=== PATIENT | male | born 1975 | race Two or more races ===

== ENCOUNTER 2018-11-07 12:47 | Emergency (ER) | payer MEDICAID ==
[~2018-11-07] VITALS: Ht 172.7 cm; Wt 70.0 kg
[2018-11-07 14:39] LABS: EOSINOPHILS % 0.2 % (0.0-5.0); HEMATOCRIT. 29.8 % (42.0-52.0); HEMOGLOBIN. 9.3 g/dL (14.0-18.0); LYMPHOCYTES % 23.7 % (20.0-50.0); MEAN CORPUSCULAR HEMOGLOBIN 24.7 pg (28.0-32.0); MEAN PLATELET VOLUME 8.2 fl (7.4-10.4); MONOCYTES % 8.4 % (2.0-8.0); NEUTROPHILS % 66.7 % (40.0-76.0); RED BLOOD CELL COUNT 3.77 mill/uL (4.7-6.1); RED CELL DISTRIBUTION WIDTH 23.1 % (11.6-14.6)
[2018-11-07 14:43] LABS: PLATELET 14 x1000/uL (130-400)
[2018-11-07 14:44] LABS: CHLORIDE 109 mEq/L (98-107)
[2018-11-07 14:47] LABS: INR 1.2; PROTHROMBIN TIME 12.5 sec (9.1-11.1)
[2018-11-07 15:08] LABS: ETHANOL BLOOD 428 mg/dL
[2018-11-07 15:20] LABS: PLATELET ESTIMATE MARKEDLY DECREASED
[2018-11-07] MEDS ORDERED: IBUPROFEN 600MG TABLET PO ONE (17:15)
[2018-11-07] MEDS ORDERED: CHLORDIAZEPOXIDE 25MG CAPSULE PO ONE (17:15)
[2018-11-07] MEDS ORDERED: ONDANSETRON 4MG ODT PO ONE (17:15)
[2018-11-07 19:00] VITALS: BP 135/71
== END 2018-11-07 19:17 | disposition home or self-care (01) ==
LOC: ER 12:47
DX: S80.01XA Contusion of right knee, initial encounter (principal); T51.0X1A Toxic effect of ethanol, accidental (unintentional), initial encounter; Y90.8 Blood alcohol level of 240 mg/100 ml or more; F10.129 Alcohol abuse with intoxication, unspecified; R03.0 Elevated blood-pressure reading, without diagnosis of hypertension; D72.819 Decreased white blood cell count, unspecified; D69.6 Thrombocytopenia, unspecified; F12.90 Cannabis use, unspecified, uncomplicated; F17.210 Nicotine dependence, cigarettes, uncomplicated; W01.0XXA Fall on same level from slipping, tripping and stumbling without subsequent striking against object, initial encounter; Y93.89 Activity, other specified; Y92.89 Other specified places as the place of occurrence of the external cause; Y99.8 Other external cause status
CPT/HCPCS: 36415; 73560; 80053; 85025; 85610; 99284; G0482; Q0162

== ENCOUNTER 2018-11-19 16:13 | Emergency (ER) | payer MEDICAID ==
[~2018-11-19] VITALS: Ht 162.6 cm; Wt 70.0 kg
[2018-11-19] MEDS ORDERED: CHLORDIAZEPOXIDE 25MG CAPSULE PO ONE (18:00)
[2018-11-19 18:42] LABS: HEMOGLOBIN. 9.8 g/dL (14.0-18.0); MEAN PLATELET VOLUME 8.4 fl (7.4-10.4)
[2018-11-19 18:47] LABS: CHLORIDE 110 mEq/L (98-107)
[2018-11-19 18:48] LABS: BASOPHILS % 1.1 % (0.0-2.0); EOSINOPHILS % 0.5 % (0.0-5.0); HEMATOCRIT. 31.7 % (42.0-52.0); LYMPHOCYTES % 24.8 % (20.0-50.0); MEAN CORPUSCULAR HEMOGLOBIN 24.9 pg (28.0-32.0); MEAN CORPUSCULAR VOLUME 80.1 fL (80.0-94.0); MONOCYTES % 9.6 % (2.0-8.0); RED BLOOD CELL COUNT 3.96 mill/uL (4.7-6.1); RED CELL DISTRIBUTION WIDTH 23.2 % (11.6-14.6)
[2018-11-19 18:53] LABS: PLATELET 24 x1000/uL (130-400)
[2018-11-19 18:56] LABS: *AMPHETAMINES SCREEN URINE NEGATIVE (NEGATIVE); *BARBITURATES SCREEN URINE NEGATIVE (NEGATIVE); *BENZODIAZEPINES SCREEN URINE NEGATIVE (NEGATIVE); *COCAINE SCREEN URINE NEGATIVE (NEGATIVE); OPIATES URINE SCREEN NEGATIVE (NEGATIVE); PHENCYCLIDINE URINE SCREEN NEGATIVE (NEGATIVE)
[2018-11-19 18:57] LABS: CANNABINOID URINE SCREEN NEGATIVE (NEGATIVE); METHADONE URINE SCREEN NEGATIVE (NEGATIVE)
[2018-11-19 19:27] LABS: ETHANOL BLOOD 440 mg/dL
[2018-11-19] MEDS ORDERED: ONDANSETRON 4MG ODT PO ONE (20:15)
[2018-11-19] MEDS ORDERED: ACETAMINOPHEN 325MG TABLET PO ONE (20:15)
[2018-11-19 22:07] VITALS: BP 118/63
== END 2018-11-19 22:12 | disposition home or self-care (01) ==
LOC: ER 16:13
DX: T51.0X1A Toxic effect of ethanol, accidental (unintentional), initial encounter (principal); R00.2 Palpitations; F10.229 Alcohol dependence with intoxication, unspecified; Y90.8 Blood alcohol level of 240 mg/100 ml or more; K70.9 Alcoholic liver disease, unspecified; D69.6 Thrombocytopenia, unspecified; Y92.89 Other specified places as the place of occurrence of the external cause; R03.0 Elevated blood-pressure reading, without diagnosis of hypertension
CPT/HCPCS: 36415; 80053; 80305; 83690; 85025; 99284; G0482; Q0162

== ENCOUNTER 2018-11-26 15:50 | Inpatient (IN) | payer MEDICAID ==
[~2018-11-26] VITALS: Ht 165.1 cm; Wt 69.9 kg
[2018-11-27] MEDS ORDERED: ONDANSETRON HCL 4MG/2ML INJ IV STA (02:19)
[2018-11-27] MEDS ORDERED: SODIUM CHLORIDE 0.9% 1,000 ML IV ONE (02:19)
[2018-11-27] MEDS ORDERED: FAMOTIDINE 20MG/2ML VIAL IV ONE (02:30)
[2018-11-27] MEDS ORDERED: LORAZEPAM 2MG/ML CPJ IV ONE (02:30)
[2018-11-27 03:07] LABS: HEMATOCRIT. 28.3 % (42.0-52.0); HEMOGLOBIN. 8.9 g/dL (14.0-18.0); MEAN CORPUSCULAR HEMOGLOBIN 25.3 pg (28.0-32.0); MEAN CORPUSCULAR VOLUME 79.9 fL (80.0-94.0); MEAN PLATELET VOLUME 8.6 fl (7.4-10.4); RED BLOOD CELL COUNT 3.54 mill/uL (4.7-6.1); RED CELL DISTRIBUTION WIDTH 23.6 % (11.6-14.6)
[2018-11-27 03:09] LABS: CHLORIDE 107 mEq/L (98-107)
[2018-11-27 03:10] LABS: INR 1.3; PROTHROMBIN TIME 12.9 sec (9.1-11.1)
[2018-11-27 03:14] LABS: ETHANOL BLOOD 253 mg/dL; PLATELET 15 x1000/uL (130-400)
[2018-11-27 03:18] LABS: CREATINE KINASE 707 IU/L (39-308)
[2018-11-27] MEDS ORDERED: CHLORDIAZEPOXIDE 25MG CAPSULE PO ONE (04:00)
[2018-11-27] MEDS ORDERED: ACETAMINOPHEN 325MG TABLET PO PRN ×2 (04:15→11:45)
[2018-11-27 04:49] LABS: CLARITY URINE CLEAR (CLEAR); COLOR URINE AMBER (YELLOW); KETONES URINE TRACE (NEGATIVE); LEUKOCYTE ESTERASE URINE NEGATIVE (NEGATIVE); NITRITE URINE NEGATIVE (NEGATIVE); OCCULT BLOOD URINE NEGATIVE (NEGATIVE); PROTEIN URINE 1+ (NEGATIVE); SPECIFIC GRAVITY URINE 1.024 (1.005-1.030)
[2018-11-27 05:01] LABS: *AMPHETAMINES SCREEN URINE NEGATIVE (NEGATIVE); *BARBITURATES SCREEN URINE NEGATIVE (NEGATIVE); *BENZODIAZEPINES SCREEN URINE PRESUMTIVE POSITIVE (NEGATIVE); *COCAINE SCREEN URINE NEGATIVE (NEGATIVE); METHADONE URINE SCREEN NEGATIVE (NEGATIVE); OPIATES URINE SCREEN NEGATIVE (NEGATIVE)
[2018-11-27 05:02] LABS: CANNABINOID URINE SCREEN PRESUMTIVE POSITIVE (NEGATIVE); PHENCYCLIDINE URINE SCREEN NEGATIVE (NEGATIVE)
[2018-11-27 08:16] LABS: PLATELET ESTIMATE MARKEDLY DECREASED
[2018-11-27] MEDS ORDERED: LORAZEPAM 0.5MG TABLET PO PRN (11:45)
[2018-11-27 14:45] VITALS: BP 129/59
[2018-11-27 14:50] VITALS: BP 129/59
[2018-11-27 16:00] VITALS: BP 116/77
[2018-11-27] MEDS ORDERED: MVI, ADULT NO.1 10 ML, FOLIC ACID 1 MG, THIAMINE HCL 100 MG in SODIUM CHLORIDE 0.9% 1,0... IV NR ×4 (16:00)
[2018-11-27 20:00] VITALS: BP 129/76
[2018-11-27] MEDS: MAGNESIUM/ALUMINUM HYDROXIDE/SIMETHICONE 30ML UDC PO PRN (20:11)
[2018-11-27] MEDS: ONDANSETRON HCL 4MG/2ML INJ IV PRN (20:11)
[2018-11-28] VITALS: BP 126/70
[2018-11-28 04:00] VITALS: BP 128/68
[2018-11-28 08:00] VITALS: BP 126/64
[2018-11-28 08:09] LABS: HEMATOCRIT. 26.2 % (42.0-52.0); HEMOGLOBIN. 8.2 g/dL (14.0-18.0); MEAN CORPUSCULAR HEMOGLOBIN 25.4 pg (28.0-32.0); MEAN CORPUSCULAR VOLUME 81.4 fL (80.0-94.0); MEAN PLATELET VOLUME 10.5 fl (7.4-10.4); RED BLOOD CELL COUNT 3.22 mill/uL (4.7-6.1); RED CELL DISTRIBUTION WIDTH 23.1 % (11.6-14.6)
[2018-11-28] MEDS: MAGNESIUM/ALUMINUM HYDROXIDE/SIMETHICONE 30ML UDC PO PRN (08:32)
[2018-11-28 08:36] LABS: CHLORIDE 105 mEq/L (98-107)
[2018-11-28 08:41] LABS: PLATELET 17 x1000/uL (130-400)
[2018-11-28 08:51] LABS: PHOSPHORUS 2.5 mg/dL (2.5-4.9)
[2018-11-28 12:00] VITALS: BP 121/62
[2018-11-28 13:10] LABS: PLATELET ESTIMATE MARKEDLY DECREASED
[2018-11-28 16:00] VITALS: BP 125/70
[2018-11-28 19:30] LABS: HEMATOCRIT 27.6 % (42.0-52.0); HEMOGLOBIN 8.6 g/dL (14.0-18.0)
[2018-11-28 20:00] VITALS: BP 123/63
[2018-11-28 20:23] LABS: AMYLASE 121 IU/L (25-115)
[2018-11-28] MEDS: LACTULOSE 20G/30ML UDC PO SCH (22:00)
[2018-11-29] VITALS (9 sets, daily range): BP systolic 103–122; BP diastolic 58–80
[2018-11-29] MEDS: LACTULOSE 20G/30ML UDC PO SCH ×3 (05:40→21:26)
[2018-11-29 05:59] LABS: HEMATOCRIT 27.2 % (42.0-52.0); HEMOGLOBIN 8.6 g/dL (14.0-18.0); MEAN CORPUSCULAR HEMOGLOBIN 25.6 pg (28.0-32.0); MEAN CORPUSCULAR VOLUME 80.9 fL (80.0-94.0); RED BLOOD CELL COUNT 3.36 mill/uL (4.7-6.1); RED CELL DISTRIBUTION WIDTH 22.5 % (11.6-14.6)
[2018-11-29 06:10] LABS: INR 1.5; PROTHROMBIN TIME 15.2 sec (9.1-11.1)
[2018-11-29 08:11] LABS: PLATELET 16 x1000/uL (130-400)
[2018-11-29] MEDS: PANTOPRAZOLE SODIUM 40 MG/VIAL IV SCH (09:50)
[2018-11-30] VITALS: BP 116/62
[2018-11-30 04:00] VITALS: BP 103/60
[2018-11-30] MEDS: LACTULOSE 20G/30ML UDC PO SCH ×2 (06:21→15:02)
[2018-11-30 08:00] VITALS: BP 110/61
[2018-11-30] MEDS: PANTOPRAZOLE SODIUM 40 MG/VIAL IV SCH (09:33)
[2018-11-30 12:00] VITALS: BP 115/79
[2018-11-30 15:08] LABS: HEMATOCRIT 28.2 % (42.0-52.0); HEMOGLOBIN 8.7 g/dL (14.0-18.0); MEAN CORPUSCULAR HEMOGLOBIN 25.3 pg (28.0-32.0); MEAN CORPUSCULAR VOLUME 81.9 fL (80.0-94.0); RED BLOOD CELL COUNT 3.44 mill/uL (4.7-6.1); RED CELL DISTRIBUTION WIDTH 22.7 % (11.6-14.6)
[2018-11-30 15:11] LABS: PLATELET 24 x1000/uL (130-400)
[2018-11-30] MEDS: ONDANSETRON HCL 4MG/2ML INJ IV PRN (15:14)
[2018-11-30 16:00] VITALS: BP 118/65
[2018-11-30 16:25] VITALS: BP 121/79
[2018-11-30] MEDS ORDERED: OMEP20TA15 PO (16:40)
[2018-11-30] MEDS ORDERED: FERR324T4 PO (16:40)
== END 2018-11-30 18:08 | disposition home or self-care (01) | DRG 280 ==
LOC: ER 15:50 → 7WST 11-27 04:18 → EDBEDREQTM 11-27 04:19 → EDBEDREQ 11-27 04:19 → ENRESERV 11-27 12:48 → CANRESERV 11-27 12:52 → ENRESERV 11-27 12:52
PROVIDERS: ADMIT Internal Medicine; ATTEND Internal Medicine
PROC: 30233R1 Transfusion of Nonautologous Platelets into Peripheral Vein, Percutaneous Approach (ICD-10-PCS; principal; 2018-11-29)
DX: K70.30 Alcoholic cirrhosis of liver without ascites (principal); D61.818 Other pancytopenia; K85.90 Acute pancreatitis without necrosis or infection, unspecified; D68.4 Acquired coagulation factor deficiency; M62.82 Rhabdomyolysis; E88.09 Other disorders of plasma-protein metabolism, not elsewhere classified; K59.00 Constipation, unspecified; Y90.8 Blood alcohol level of 240 mg/100 ml or more; F12.90 Cannabis use, unspecified, uncomplicated; G47.00 Insomnia, unspecified; F10.10 Alcohol abuse, uncomplicated
CPT/HCPCS: 36415; 36430; 71045; 74018; 74176; 76700; 80048; 80076; 80305; 82140; 82150; 82550; 83735; 83880; 84100; 84484; 85014; 85018; 85027; 86850; 86900; 86945; 93005; 93970; 96374; 96375; 99285; C9113; G0482; J2060; J2405; J3411; J3490; J7030; J7050; P9034

== ENCOUNTER 2018-12-04 14:06 | Emergency (ER) | payer MEDICAID ==
[~2018-12-04] VITALS: Ht 172.7 cm; Wt 70.0 kg
[~2018-12-04 14:06] MED LIST: FERR324T4 PO; OMEP20TA15 PO
[2018-12-04 14:07] VITALS: BP 128/67
== END 2018-12-04 17:00 | disposition left against medical advice (07) ==
LOC: ER 14:06
DX: R11.2 Nausea with vomiting, unspecified (principal); Z53.21 Procedure and treatment not carried out due to patient leaving prior to being seen by health care provider

== ENCOUNTER 2019-01-26 02:47 | Inpatient (IN) | payer MEDICAID ==
[~2019-01-26] VITALS: Ht 162.6 cm; Wt 68.0 kg
[2019-01-26] MEDS ORDERED: COCAINE 4% TOPICAL SOLN 4ML TOP ONE (06:45)
[2019-01-26 07:12] LABS: HEMOGLOBIN. 8.2 g/dL (14.0-18.0); MEAN CORPUSCULAR VOLUME 81.9 fL (80.0-94.0); MEAN PLATELET VOLUME 8.5 fl (7.4-10.4); RED BLOOD CELL COUNT 3.17 mill/uL (4.7-6.1); RED CELL DISTRIBUTION WIDTH 25.8 % (11.6-14.6)
[2019-01-26 07:23] LABS: INR 1.3; PROTHROMBIN TIME 13.1 sec (9.1-11.1)
[2019-01-26] MEDS ORDERED: PHENYLEPHRINE HCL 1% 15 ML NASAL SPRAY BOTHNSTRLS SCH (07:30)
[2019-01-26] MEDS ORDERED: PHENYLEPHRINE HCL 0.5% 15ML NASAL SPRAY BOTHNSTRLS STA (07:34)
[2019-01-26 08:00] LABS: PLATELET ESTIMATE MARKEDLY DECREASED
[2019-01-26] MEDS ORDERED: CEFAZOLIN 1000MG PREMIX 50 ML IV ONE (08:00)
[2019-01-26] MEDS ORDERED: ONDANSETRON HCL 4MG/2ML INJ IV ONE (08:00)
[2019-01-26] MEDS ORDERED: MORPHINE SULFATE 4 MG/ML CPJ (NOT FOR IM USE) IV ONE (08:00)
[2019-01-26 08:01] LABS: PLATELET 15 x1000/uL (130-400)
[2019-01-26] MEDS ORDERED: OXYMETAZOLINE HCL NASAL SPRAY 15ML BOTHNSTRLS SCH (09:00)
[2019-01-26] MEDS ORDERED: GUAIFENESIN 200MG/10ML SUGAR FREE UDC PO PRN (10:30)
[2019-01-26] MEDS ORDERED: DOCUSATE SODIUM 100MG CAPSULE PO PRN (10:30)
[2019-01-26] MEDS ORDERED: LORAZEPAM 2MG/ML CPJ IV PRN (10:30)
[2019-01-26] MEDS ORDERED: DIPHENHYDRAMINE 50MG/ML VIAL IV PRN (10:30)
[2019-01-26] MEDS ORDERED: MAGNESIUM/ALUMINUM HYDROXIDE/SIMETHICONE 30ML UDC PO PRN (10:30)
[2019-01-26] MEDS ORDERED: HYDRALAZINE 20MG/ML VIAL IV PRN (10:30)
[2019-01-26] MEDS ORDERED: IPRATROPIUM/ALBUTEROL 0.5-3(2.5)MG/3ML NEB INH PRN (10:30)
[2019-01-26] MEDS ORDERED: ACETAMINOPHEN 325MG TABLET PO PRN (10:30)
[2019-01-26] MEDS ORDERED: HYDROCODONE/ACETAMINOPHEN 10/325MG TABLET PO PRN (10:30)
[2019-01-26] MEDS ORDERED: CLONIDINE 0.1MG TABLET PO PRN (10:30)
[2019-01-26 11:28] LABS: *AMPHETAMINES SCREEN URINE NEGATIVE (NEGATIVE); *BARBITURATES SCREEN URINE NEGATIVE (NEGATIVE); *BENZODIAZEPINES SCREEN URINE NEGATIVE (NEGATIVE); *COCAINE SCREEN URINE PRESUMTIVE POSITIVE (NEGATIVE); METHADONE URINE SCREEN NEGATIVE (NEGATIVE); OPIATES URINE SCREEN NEGATIVE (NEGATIVE)
[2019-01-26 11:29] LABS: CANNABINOID URINE SCREEN NEGATIVE (NEGATIVE); PHENCYCLIDINE URINE SCREEN NEGATIVE (NEGATIVE)
[2019-01-26 11:53] VITALS: BP 155/65
[2019-01-26 12:00] VITALS: BP 136/64
[2019-01-26] MEDS ORDERED: ONDA4TAB5 MT (12:19)
[2019-01-26] MEDS ORDERED: TRAZ-213 MT (12:19)
[2019-01-26] MEDS ORDERED: FOLI-43 MT (12:19)
[2019-01-26] MEDS: FOLIC ACID 1 MG, THIAMINE HCL 100 MG, MVI, ADULT NO.1 10 ML in DEXTROSE 5% WATER 1,000 ML IV SCH ×4 (15:19)
[2019-01-26] MEDS: SODIUM CHLORIDE 0.9% INJ 3ML FLUSH IVF SCH ×2 (15:33→22:17)
[2019-01-26 16:00] VITALS: BP 143/68
[2019-01-26 16:17] LABS: CREATINE KINASE 296 IU/L (39-308)
[2019-01-26 16:18] LABS: CREATINE KINASE MB FRACTION 3.5 ng/mL (0.5-3.6)
[2019-01-26] MEDS: ONDANSETRON HCL 4MG/2ML INJ IV PRN (17:17)
[2019-01-26 20:00] VITALS: BP 142/73
[2019-01-26 23:59] LABS: CREATINE KINASE 260 IU/L (39-308)
[2019-01-27] VITALS: BP 153/75
[2019-01-27] LABS: CREATINE KINASE MB FRACTION 3.3 ng/mL (0.5-3.6)
[2019-01-27] MEDS: ONDANSETRON HCL 4MG/2ML INJ IV PRN (00:52)
[2019-01-27 04:00] VITALS: BP 144/57
[2019-01-27] MEDS: HYDROMORPHONE HCL/PF 2MG/ML CPJ IV PRN ×2 (05:15→10:51)
[2019-01-27] MEDS: SODIUM CHLORIDE 0.9% INJ 3ML FLUSH IVF SCH ×2 (05:15→14:27)
[2019-01-27 06:43] LABS: BASOPHILS % 0.2 % (0.0-2.0); EOSINOPHILS % 1.2 % (0.0-5.0); HEMOGLOBIN. 8.2 g/dL (14.0-18.0); LYMPHOCYTES % 10.4 % (20.0-50.0); MEAN CORPUSCULAR HEMOGLOBIN 25.7 pg (28.0-32.0); MEAN CORPUSCULAR VOLUME 81.2 fL (80.0-94.0); MEAN PLATELET VOLUME 8.5 fl (7.4-10.4); MONOCYTES % 9.3 % (2.0-8.0); NEUTROPHILS % 78.9 % (40.0-76.0); RED BLOOD CELL COUNT 3.21 mill/uL (4.7-6.1); RED CELL DISTRIBUTION WIDTH 25.9 % (11.6-14.6)
[2019-01-27 07:03] LABS: CHLORIDE 103 mEq/L (98-107)
[2019-01-27 07:19] LABS: PLATELET 22 x1000/uL (130-400)
[2019-01-27 08:00] VITALS: BP 141/70
[2019-01-27] MEDS ORDERED: POTASSIUM CHLORIDE 20MEQ TABLET SR PO SCH (09:45)
[2019-01-27] MEDS: FOLIC ACID 1 MG, THIAMINE HCL 100 MG, MVI, ADULT NO.1 10 ML in DEXTROSE 5% WATER 1,000 ML IV SCH ×4 (11:20)
[2019-01-27 12:00] VITALS: BP 119/65
[2019-01-27 16:00] VITALS: BP 126/73
[2019-01-27 16:49] LABS: PLATELET ESTIMATE MARKEDLY DECREASED
[2019-01-27 18:16] VITALS: BP 131/69
== END 2019-01-28 10:50 | disposition home or self-care (01) | DRG 115 ==
LOC: ER 03:13 → 5WST 07:36 → ENRESERV 10:07 → 5WST 01-27 05:03 → UNDODISIN 01-27 20:20 → 5WST 01-28 10:14
PROVIDERS: ADMIT Internal Medicine; ATTEND Internal Medicine
DX: R04.0 Epistaxis (principal); D61.818 Other pancytopenia; K74.60 Unspecified cirrhosis of liver; F10.20 Alcohol dependence, uncomplicated
CPT/HCPCS: 36415; 80305; 80320; 82550; 82553; 84484; 86850; 86900; 96374; 96375; 99291; J0690; J1170; J2270; J2405; J3411; J3490; J7050; J7070; G0480

== ENCOUNTER 2019-03-16 13:19 | Emergency (ER) | payer MEDICAID ==
[~2019-03-16] VITALS: Ht 170.2 cm; Wt 75.0 kg
[~2019-03-16 13:19] MED LIST changes: +FOLI-43 MT; +ONDA4TAB5 MT; +TRAZ-213 MT
[2019-03-16] MEDS ORDERED: ONDANSETRON 4MG ODT PO ONE (14:15)
[2019-03-16 15:27] VITALS: BP 117/71
== END 2019-03-16 15:29 | disposition home or self-care (01) ==
LOC: ER 13:19
DX: F10.229 Alcohol dependence with intoxication, unspecified (principal); Y90.9 Presence of alcohol in blood, level not specified; K76.9 Liver disease, unspecified; F17.210 Nicotine dependence, cigarettes, uncomplicated
CPT/HCPCS: 99283; Q0162; Z7610

== ENCOUNTER 2019-03-18 18:34 | Emergency (ER) | payer MEDICAID ==
[~2019-03-18] VITALS: Ht 160 cm; Wt 94.0 kg
[2019-03-19] MEDS ORDERED: LORAZEPAM 2MG/ML CPJ IV STA (01:06)
[2019-03-19] MEDS ORDERED: SODIUM CHLORIDE 0.9% 1,000 ML IV ONE (01:06)
[2019-03-19] MEDS ORDERED: ONDANSETRON HCL 4MG/2ML INJ IV ONE (01:15)
[2019-03-19] MEDS ORDERED: FOLIC ACID 1 MG, THIAMINE HCL 100 MG, MVI, ADULT NO.1 10 ML in DEXTROSE 5% WATER 1,000 ML IV ONE ×4 (01:15)
[2019-03-19 01:16] LABS: HEMATOCRIT. 28.9 % (42.0-52.0); HEMOGLOBIN. 9.2 g/dL (14.0-18.0); MEAN CORPUSCULAR HEMOGLOBIN 25.4 pg (28.0-32.0); MEAN CORPUSCULAR VOLUME 79.8 fL (80.0-94.0); MEAN PLATELET VOLUME 8.9 fl (7.4-10.4); RED BLOOD CELL COUNT 3.62 mill/uL (4.7-6.1); RED CELL DISTRIBUTION WIDTH 25.1 % (11.6-14.6)
[2019-03-19 01:21] LABS: CHLORIDE 114 mEq/L (98-107)
[2019-03-19 01:27] LABS: PLATELET 27 x1000/uL (130-400)
[2019-03-19 01:31] LABS: PLATELET ESTIMATE DECREASED
[2019-03-19 01:39] LABS: ETHANOL BLOOD 295 mg/dL
[2019-03-19 02:52] LABS: CLARITY URINE CLEAR (CLEAR); COLOR URINE YELLOW (YELLOW); KETONES URINE NEGATIVE (NEGATIVE); LEUKOCYTE ESTERASE URINE NEGATIVE (NEGATIVE); NITRITE URINE NEGATIVE (NEGATIVE); OCCULT BLOOD URINE NEGATIVE (NEGATIVE); PROTEIN URINE NEGATIVE (NEGATIVE); SPECIFIC GRAVITY URINE 1.018 (1.005-1.030)
[2019-03-19 03:02] LABS: *AMPHETAMINES SCREEN URINE NEGATIVE (NEGATIVE); *BARBITURATES SCREEN URINE NEGATIVE (NEGATIVE); *BENZODIAZEPINES SCREEN URINE PRESUMTIVE POSITIVE (NEGATIVE); *COCAINE SCREEN URINE NEGATIVE (NEGATIVE); CANNABINOID URINE SCREEN NEGATIVE (NEGATIVE); METHADONE URINE SCREEN NEGATIVE (NEGATIVE); OPIATES URINE SCREEN NEGATIVE (NEGATIVE); PHENCYCLIDINE URINE SCREEN NEGATIVE (NEGATIVE)
[2019-03-19] MEDS ORDERED: FAMOTIDINE 20MG TABLET PO ONE (03:15)
[2019-03-19 06:11] VITALS: BP 102/56
== END 2019-03-19 06:11 | disposition home or self-care (01) ==
LOC: ER 18:34
DX: F10.129 Alcohol abuse with intoxication, unspecified (principal); K76.9 Liver disease, unspecified; D72.819 Decreased white blood cell count, unspecified; K21.9 Gastro-esophageal reflux disease without esophagitis; Z79.899 Other long term (current) drug therapy; Y90.9 Presence of alcohol in blood, level not specified
CPT/HCPCS: 36415; 80053; 80305; 80320; 81003; 83690; 83735; 85025; 93005; 96361; 96365; 96366; 96375; 99284; J2060; J2405; J3411; J3490; J7030; J7070; Z7610; G0480

== ENCOUNTER 2019-03-24 17:22 | Emergency (ER) | payer MEDICAID ==
[~2019-03-24] VITALS: Ht 165.1 cm; Wt 64.0 kg
[2019-03-24 18:42] LABS: CHLORIDE 114 mEq/L (98-107)
[2019-03-24 21:59] VITALS: BP 132/76
== END 2019-03-24 22:00 | disposition home or self-care (01) ==
LOC: ER 17:22
DX: F10.129 Alcohol abuse with intoxication, unspecified (principal); F41.9 Anxiety disorder, unspecified; Z79.899 Other long term (current) drug therapy; Y90.9 Presence of alcohol in blood, level not specified
CPT/HCPCS: 36415; 99283

== ENCOUNTER 2019-03-25 19:29 | Emergency (ER) | payer MEDICAID ==
[~2019-03-25] VITALS: Ht 162.6 cm; Wt 70.0 kg
[2019-03-25 22:16] LABS: CLARITY URINE CLEAR (CLEAR); COLOR URINE YELLOW (YELLOW); KETONES URINE NEGATIVE (NEGATIVE); LEUKOCYTE ESTERASE URINE NEGATIVE (NEGATIVE); NITRITE URINE NEGATIVE (NEGATIVE); OCCULT BLOOD URINE NEGATIVE (NEGATIVE); PH URINE 6.5 (4.5-8.0); PROTEIN URINE NEGATIVE (NEGATIVE); SPECIFIC GRAVITY URINE 1.007 (1.005-1.030); UROBILINOGEN URINE 0.2 E.U./dL (0.2-1.0)
[2019-03-25] MEDS: ONDANSETRON HCL 4MG/2ML INJ IV STA (22:35)
[2019-03-25] MEDS: MORPHINE SULFATE 4 MG/ML CPJ (NOT FOR IM USE) IV STA (22:35)
[2019-03-25] MEDS: SODIUM CHLORIDE 0.9% 1,000 ML IV ONE (22:35)
[2019-03-25] MEDS: FAMOTIDINE 20MG/2ML VIAL IV STA (22:35)
[2019-03-25 22:48] LABS: *AMPHETAMINES SCREEN URINE NEGATIVE (NEGATIVE); *BARBITURATES SCREEN URINE NEGATIVE (NEGATIVE); *BENZODIAZEPINES SCREEN URINE PRESUMTIVE POSITIVE (NEGATIVE); *COCAINE SCREEN URINE NEGATIVE (NEGATIVE); METHADONE URINE SCREEN NEGATIVE (NEGATIVE); OPIATES URINE SCREEN NEGATIVE (NEGATIVE)
[2019-03-25 22:49] LABS: CANNABINOID URINE SCREEN NEGATIVE (NEGATIVE); PHENCYCLIDINE URINE SCREEN NEGATIVE (NEGATIVE)
[2019-03-25 22:49] LABS: BASOPHILS % 0.6 % (0.0-2.0); EOSINOPHILS % 0.9 % (0.0-5.0); HEMATOCRIT. 30.2 % (42.0-52.0); HEMOGLOBIN. 9.6 g/dL (14.0-18.0); LYMPHOCYTES % 31.4 % (20.0-50.0); MEAN CORPUSCULAR VOLUME 78.6 fL (80.0-94.0); MEAN PLATELET VOLUME 8.4 fl (7.4-10.4); MONOCYTES % 9.7 % (2.0-8.0); NEUTROPHILS % 57.4 % (40.0-76.0); RED BLOOD CELL COUNT 3.84 mill/uL (4.7-6.1); RED CELL DISTRIBUTION WIDTH 24.1 % (11.6-14.6)
[2019-03-25 22:50] LABS: CHLORIDE 111 mEq/L (98-107)
[2019-03-25 23:02] LABS: PLATELET 27 x1000/uL (130-400)
[2019-03-25 23:15] LABS: ETHANOL BLOOD 327 mg/dL
[2019-03-25 23:26] LABS: PLATELET ESTIMATE MARKEDLY DECREASED
[2019-03-26] MEDS: CHLORDIAZEPOXIDE 25MG CAPSULE PO ONE (06:35)
[2019-03-26 07:41] VITALS: BP 113/62
== END 2019-03-26 07:42 | disposition home or self-care (01) ==
LOC: ER 21:09
DX: F10.129 Alcohol abuse with intoxication, unspecified (principal); D72.818 Other decreased white blood cell count; R10.84 Generalized abdominal pain; D64.9 Anemia, unspecified; F32.9 Major depressive disorder, single episode, unspecified; Z98.890 Other specified postprocedural states; Z87.891 Personal history of nicotine dependence; Z79.899 Other long term (current) drug therapy
CPT/HCPCS: 36415; 74176; 80053; 80305; 80320; 81003; 83690; 85025; 96374; 96375; 99284; J2270; J2405; J3490; J7030; Z7610; G0480

== ENCOUNTER 2019-03-27 07:18 | Emergency (ER) | payer MEDICAID ==
[~2019-03-27] VITALS: Ht 162.6 cm; Wt 70.0 kg
[2019-03-27 09:13] LABS: HEMATOCRIT. 28.7 % (42.0-52.0); HEMOGLOBIN. 9.1 g/dL (14.0-18.0); MEAN CORPUSCULAR HEMOGLOBIN 24.9 pg (28.0-32.0); MEAN CORPUSCULAR VOLUME 78.7 fL (80.0-94.0); MEAN PLATELET VOLUME 8.3 fl (7.4-10.4); RED BLOOD CELL COUNT 3.64 mill/uL (4.7-6.1); RED CELL DISTRIBUTION WIDTH 23.7 % (11.6-14.6)
[2019-03-27 09:18] LABS: CHLORIDE 110 mEq/L (98-107)
[2019-03-27 09:24] LABS: INR 1.2; PROTHROMBIN TIME 12.7 sec (9.6-11.0)
[2019-03-27 09:37] LABS: PLATELET 16 x1000/uL (130-400)
[2019-03-27 10:24] LABS: PLATELET ESTIMATE MARKEDLY DECREASED
[2019-03-27 10:47] LABS: CLARITY URINE CLEAR (CLEAR); COLOR URINE YELLOW (YELLOW); KETONES URINE NEGATIVE (NEGATIVE); LEUKOCYTE ESTERASE URINE NEGATIVE (NEGATIVE); NITRITE URINE NEGATIVE (NEGATIVE); OCCULT BLOOD URINE NEGATIVE (NEGATIVE); PROTEIN URINE NEGATIVE (NEGATIVE); SPECIFIC GRAVITY URINE 1.006 (1.005-1.030); UROBILINOGEN URINE 0.2 E.U./dL (0.2-1.0)
[2019-03-27 14:08] VITALS: BP 125/76
== END 2019-03-27 15:25 | disposition home or self-care (01) ==
LOC: ER 07:18
DX: R10.31 Right lower quadrant pain (principal); K74.60 Unspecified cirrhosis of liver; D64.9 Anemia, unspecified; Z59.0 Homelessness
CPT/HCPCS: 36415; 99283

== ENCOUNTER 2019-03-28 19:56 | Inpatient (IN) | payer MEDICAID ==
[~2019-03-28] VITALS: Ht 162.6 cm; Wt 67.1 kg
[2019-03-28] MEDS ORDERED: ONDANSETRON HCL 4MG/2ML INJ IV STA (22:29)
[2019-03-28] MEDS ORDERED: FAMOTIDINE 20MG/2ML VIAL IV STA (22:29)
[2019-03-28] MEDS ORDERED: SODIUM CHLORIDE 0.9% 1,000 ML IV ONE (22:29)
[2019-03-28] MEDS ORDERED: PANTOPRAZOLE SODIUM 40 MG/VIAL IV STA (22:29)
[2019-03-28 23:40] LABS: HEMOGLOBIN. 8.6 g/dL (14.0-18.0); MEAN CORPUSCULAR HEMOGLOBIN 25.2 pg (28.0-32.0); MEAN CORPUSCULAR VOLUME 78.6 fL (80.0-94.0); MEAN PLATELET VOLUME 9.6 fl (7.4-10.4); RED BLOOD CELL COUNT 3.43 mill/uL (4.7-6.1)
[2019-03-28 23:45] LABS: CHLORIDE 106 mEq/L (98-107)
[2019-03-28 23:48] LABS: INR 1.4; PARTIAL THROMBOPLASTIN TIME 33.1 sec (23.4-31.0); PROTHROMBIN TIME 14.2 sec (9.6-11.0)
[2019-03-28 23:49] LABS: ETHANOL BLOOD 283 mg/dL; PLATELET 13 x1000/uL (130-400)
[2019-03-29] VITALS (36 sets, daily range): BP systolic 87–144; BP diastolic 46–90
[2019-03-29] MEDS ORDERED: PHYTONADIONE 10 MG/10 ML ORALSYR PO ONE
[2019-03-29] MEDS ORDERED: KCL 20MEQ/100ML PREMIX 100 ML IV ONE (00:15)
[2019-03-29 00:41] LABS: PLATELET ESTIMATE MARKEDLY DECREASED
[2019-03-29] MEDS ORDERED: LORAZEPAM 2MG/ML CPJ IV PRN (04:15)
[2019-03-29] MEDS: DEXT 5%/0.45% NACL KCL 10MEQ/L 1,000 ML IV SCH (05:23)
[2019-03-29] MEDS: PANTOPRAZOLE 80 MG in SODIUM CHLORIDE 0.9% 100 ML IV SCH ×2 (05:24→16:40)
[2019-03-29 06:17] LABS: HEMATOCRIT. 26.2 % (42.0-52.0); HEMOGLOBIN. 8.3 g/dL (14.0-18.0); MEAN CORPUSCULAR HEMOGLOBIN 25.2 pg (28.0-32.0); MEAN CORPUSCULAR VOLUME 79.4 fL (80.0-94.0); MEAN PLATELET VOLUME 9.1 fl (7.4-10.4); RED CELL DISTRIBUTION WIDTH 24.5 % (11.6-14.6)
[2019-03-29 06:22] LABS: CHLORIDE 113 mEq/L (98-107)
[2019-03-29 06:52] LABS: PLATELET 14 x1000/uL (130-400)
[2019-03-29 08:19] LABS: PLATELET ESTIMATE MARKEDLY DECREASED
[2019-03-29 08:56] LABS: PHOSPHORUS 3.8 mg/dL (2.5-4.9)
[2019-03-29] MEDS ORDERED: POTASSIUM CHLORIDE INJ 40 MEQ in DEXT 5% WATER 250 ML IV SCH (12:00)
[2019-03-29] MEDS ORDERED: MAGNESIUM 2 G PREMIX 50 ML IV SCH (12:00)
[2019-03-29] MEDS: FOLIC ACID 1 MG, THIAMINE HCL 100 MG, MVI, ADULT NO.1 10 ML in DEXTROSE 5% WATER 1,000 ML IV SCH ×4 (12:01)
[2019-03-29] MEDS: ONDANSETRON HCL 4MG/2ML INJ IV PRN (12:38)
[2019-03-29] MEDS: LORAZEPAM 2MG/ML CPJ IV PRN (16:47)
[2019-03-29] MEDS: CHLORDIAZEPOXIDE 25MG CAPSULE PO SCH (21:20)
[2019-03-30] VITALS (53 sets, daily range): BP systolic 77–151; BP diastolic 31–92
[2019-03-30] MEDS: DEXT 5%/0.45% NACL KCL 10MEQ/L 1,000 ML IV SCH ×3 (00:06→21:06)
[2019-03-30] MEDS: PANTOPRAZOLE 80 MG in SODIUM CHLORIDE 0.9% 100 ML IV SCH ×3 (04:50→22:15)
[2019-03-30] MEDS: CHLORDIAZEPOXIDE 25MG CAPSULE PO SCH ×3 (04:50→22:13)
[2019-03-30 05:34] LABS: HEMATOCRIT. 26.2 % (42.0-52.0); HEMOGLOBIN. 8.4 g/dL (14.0-18.0); MEAN CORPUSCULAR HEMOGLOBIN 25.5 pg (28.0-32.0); MEAN CORPUSCULAR VOLUME 78.9 fL (80.0-94.0); MEAN PLATELET VOLUME 8.3 fl (7.4-10.4); RED BLOOD CELL COUNT 3.32 mill/uL (4.7-6.1); RED CELL DISTRIBUTION WIDTH 24.1 % (11.6-14.6)
[2019-03-30 05:37] LABS: CHLORIDE 109 mEq/L (98-107)
[2019-03-30 06:20] LABS: PLATELET 14 x1000/uL (130-400)
[2019-03-30 07:45] LABS: PLATELET ESTIMATE MARKEDLY DECREASED
[2019-03-30] MEDS ORDERED: POTASSIUM CHLORIDE INJ 40 MEQ in DEXT 5% WATER 250 ML IV NR (08:00)
[2019-03-30 09:33] LABS: TOTAL IRON BINDING CAPACITY 399 ug/dL (250-450)
[2019-03-30] MEDS: FOLIC ACID 1 MG, THIAMINE HCL 100 MG, MVI, ADULT NO.1 10 ML in DEXTROSE 5% WATER 1,000 ML IV SCH ×4 (12:24)
[2019-03-30] MEDS: KETOROLAC 30MG/ML VIAL IV PRN (14:52)
[2019-03-30] MEDS: LACTULOSE 20G/30ML UDC PO SCH (18:12)
[2019-03-30] MEDS ORDERED: LACTULOSE 20G/30ML UDC PO NR (22:00)
[2019-03-31] VITALS (50 sets, daily range): BP systolic 65–139; BP diastolic 32–92
[2019-03-31] MEDS: LORAZEPAM 2MG/ML CPJ IV PRN (01:21)
[2019-03-31] MEDS: ONDANSETRON HCL 4MG/2ML INJ IV PRN ×2 (01:21→21:22)
[2019-03-31] MEDS: CHLORDIAZEPOXIDE 25MG CAPSULE PO SCH ×3 (05:54→21:22)
[2019-03-31] MEDS: PANTOPRAZOLE 80 MG in SODIUM CHLORIDE 0.9% 100 ML IV SCH ×3 (08:00→23:20)
[2019-03-31] MEDS: LACTULOSE 20G/30ML UDC PO SCH ×2 (08:30→18:23)
[2019-03-31 08:49] LABS: CHLORIDE 110 mEq/L (98-107)
[2019-03-31 08:55] LABS: BASOPHILS % 0.2 % (0.0-2.0); EOSINOPHILS % 1.3 % (0.0-5.0); HEMATOCRIT. 28.6 % (42.0-52.0); LYMPHOCYTES % 11.8 % (20.0-50.0); MEAN CORPUSCULAR HEMOGLOBIN 25.2 pg (28.0-32.0); MEAN CORPUSCULAR VOLUME 79.5 fL (80.0-94.0); MEAN PLATELET VOLUME 8.8 fl (7.4-10.4); MONOCYTES % 11.1 % (2.0-8.0); NEUTROPHILS % 75.6 % (40.0-76.0); RED BLOOD CELL COUNT 3.59 mill/uL (4.7-6.1); RED CELL DISTRIBUTION WIDTH 23.2 % (11.6-14.6)
[2019-03-31 09:07] LABS: PLATELET 26 x1000/uL (130-400)
[2019-03-31] MEDS: DEXT 5%/0.45% NACL KCL 10MEQ/L 1,000 ML IV SCH (11:20)
[2019-03-31] MEDS ORDERED: POTASSIUM CHLORIDE INJ 40 MEQ in DEXT 5% WATER 250 ML IV NR (11:30)
[2019-03-31] MEDS: FOLIC ACID 1 MG, THIAMINE HCL 100 MG, MVI, ADULT NO.1 10 ML in DEXTROSE 5% WATER 1,000 ML IV SCH ×4 (12:46)
[2019-03-31] MEDS ORDERED: NOREPINEPHRINE BITARTRATE 1MG/ML 4ML IV ONE ×2 (14:38→14:42)
[2019-04-01] VITALS (16 sets, daily range): BP systolic 92–126; BP diastolic 36–67
[2019-04-01] MEDS: DEXT 5%/0.45% NACL KCL 10MEQ/L 1,000 ML IV SCH ×2 (01:19→14:00)
[2019-04-01] MEDS: FOLIC ACID 1 MG, THIAMINE HCL 100 MG, MVI, ADULT NO.1 10 ML in DEXTROSE 5% WATER 1,000 ML IV SCH ×8 (05:29→12:00)
[2019-04-01] MEDS: CHLORDIAZEPOXIDE 25MG CAPSULE PO SCH ×3 (05:29→21:35)
[2019-04-01] MEDS: LACTULOSE 20G/30ML UDC PO SCH ×2 (08:03→17:06)
[2019-04-01] MEDS: PANTOPRAZOLE 80 MG in SODIUM CHLORIDE 0.9% 100 ML IV SCH (10:53)
[2019-04-02] VITALS (12 sets, daily range): BP systolic 101–130; BP diastolic 49–73
[2019-04-02] MEDS: ONDANSETRON HCL 4MG/2ML INJ IV PRN ×3 (01:20→21:04)
[2019-04-02] MEDS: DEXT 5%/0.45% NACL KCL 10MEQ/L 1,000 ML IV SCH ×3 (01:20→16:40)
[2019-04-02] MEDS: PANTOPRAZOLE 80 MG in SODIUM CHLORIDE 0.9% 100 ML IV SCH (01:32)
[2019-04-02] MEDS: CHLORDIAZEPOXIDE 25MG CAPSULE PO SCH ×3 (05:57→21:04)
[2019-04-02 06:15] LABS: CHLORIDE 108 mEq/L (98-107); HEMOGLOBIN. 8.6 g/dL (14.0-18.0); MEAN CORPUSCULAR HEMOGLOBIN 25.2 pg (28.0-32.0); MEAN CORPUSCULAR VOLUME 79.5 fL (80.0-94.0); MEAN PLATELET VOLUME 8.7 fl (7.4-10.4)
[2019-04-02] MEDS: LACTULOSE 20G/30ML UDC PO SCH ×2 (09:01→16:48)
[2019-04-02] MEDS: OMEPRAZOLE 20MG CAPSULE EXTENDED RELEASE PO SCH (10:42)
[2019-04-02] MEDS: FOLIC ACID 1 MG, THIAMINE HCL 100 MG, MVI, ADULT NO.1 10 ML in DEXTROSE 5% WATER 1,000 ML IV SCH ×4 (12:34)
[2019-04-02 14:26] LABS: PLATELET ESTIMATE MARKEDLY DECREASED
[2019-04-02 14:27] LABS: PLATELET 17 x1000/uL (130-400)
[2019-04-03] VITALS (12 sets, daily range): BP systolic 95–115; BP diastolic 47–65
[2019-04-03] MEDS: DEXT 5%/0.45% NACL KCL 10MEQ/L 1,000 ML IV SCH (06:15)
[2019-04-03] MEDS: OMEPRAZOLE 20MG CAPSULE EXTENDED RELEASE PO SCH (06:15)
[2019-04-03] MEDS: CHLORDIAZEPOXIDE 25MG CAPSULE PO SCH ×3 (06:15→22:11)
[2019-04-03] MEDS: LACTULOSE 20G/30ML UDC PO SCH ×2 (08:25→17:12)
[2019-04-03] MEDS: FOLIC ACID 1 MG, THIAMINE HCL 100 MG, MVI, ADULT NO.1 10 ML in DEXTROSE 5% WATER 1,000 ML IV SCH ×4 (11:03)
[2019-04-04] VITALS: BP 101/56
[2019-04-04] MEDS: ONDANSETRON HCL 4MG/2ML INJ IV PRN (00:39)
[2019-04-04] MEDS: KETOROLAC 30MG/ML VIAL IV PRN (00:40)
[2019-04-04 04:00] VITALS: BP 100/54
[2019-04-04] MEDS: DEXT 5%/0.45% NACL KCL 10MEQ/L 1,000 ML IV SCH ×3 (04:59→22:56)
[2019-04-04] MEDS: OMEPRAZOLE 20MG CAPSULE EXTENDED RELEASE PO SCH ×2 (06:56→09:26)
[2019-04-04 08:00] VITALS: BP 103/58
[2019-04-04] MEDS: LACTULOSE 20G/30ML UDC PO SCH ×2 (09:26→17:23)
[2019-04-04 12:00] VITALS: BP 92/50
[2019-04-04] MEDS: FOLIC ACID 1 MG, THIAMINE HCL 100 MG, MVI, ADULT NO.1 10 ML in DEXTROSE 5% WATER 1,000 ML IV SCH ×4 (12:08)
[2019-04-04 16:00] VITALS: BP 135/51
[2019-04-04 20:00] VITALS: BP 110/56
[2019-04-05] VITALS: BP 109/56
[2019-04-05] MEDS ORDERED: KETOROLAC 30MG/ML VIAL IV PRN (02:30)
[2019-04-05] MEDS: ONDANSETRON HCL 4MG/2ML INJ IV PRN (02:34)
[2019-04-05 04:00] VITALS: BP 108/61
[2019-04-05 08:00] VITALS: BP 106/60
[2019-04-05] MEDS: LACTULOSE 20G/30ML UDC PO SCH (09:00)
[2019-04-05] MEDS: FOLIC ACID 1 MG, THIAMINE HCL 100 MG, MVI, ADULT NO.1 10 ML in DEXTROSE 5% WATER 1,000 ML IV SCH ×4 (11:07)
[2019-04-05 12:09] VITALS: BP 106/60
== END 2019-04-05 14:22 | disposition home or self-care (01) | DRG 280 ==
LOC: ER 19:56 → CVICU 03-29 00:06 → EDBEDREQTM 03-29 00:13 → EDBEDREQSVC 03-29 00:13 → EDBEDREQ 03-29 00:13 → EDBEDREQDT 03-29 00:19 → EDBEDREQSVC 03-29 00:19 → EDBEDREQTM 03-29 00:19 → ENRESERV 03-29 01:56 → 3WST 03-31 23:50 → 6WST 04-03 15:12
PROVIDERS: ADMIT Hospitalist; ATTEND Hospitalist
PROC: 30233R1 Transfusion of Nonautologous Platelets into Peripheral Vein, Percutaneous Approach (ICD-10-PCS; principal; 2019-03-30)
DX: K70.30 Alcoholic cirrhosis of liver without ascites (principal); D61.818 Other pancytopenia; D68.9 Coagulation defect, unspecified; E72.20 Disorder of urea cycle metabolism, unspecified; K92.2 Gastrointestinal hemorrhage, unspecified; R16.1 Splenomegaly, not elsewhere classified; F10.10 Alcohol abuse, uncomplicated; D75.9 Disease of blood and blood-forming organs, unspecified; K64.9 Unspecified hemorrhoids; R74.0 Nonspecific elevation of levels of transaminase and lactic acid dehydrogenase [LDH]; Z59.0 Homelessness; Z87.11 Personal history of peptic ulcer disease; Z87.891 Personal history of nicotine dependence; Z71.41 Alcohol abuse counseling and surveillance of alcoholic; Z79.899 Other long term (current) drug therapy
CPT/HCPCS: 36415; 80048; 80320; 82140; 82270; 82728; 83540; 83550; 83735; 84100; 86850; 86900; 93970; 96374; 96375; 97110; 97116; 97162; 97166; 97530; 97535; 99291; C9113; J1885; J2060; J2405; J3411; J3430; J3475; J3480; J3490; J7030; J7050; J7060; J7070; P9034; G0480

== ENCOUNTER 2019-04-13 16:44 | Inpatient (IN) | payer MEDICAID ==
[~2019-04-13] VITALS: Ht 162.6 cm; Wt 69.9 kg
[2019-04-13] MEDS ORDERED: SODIUM CHLORIDE 0.9% 1,000 ML IV ONE (18:32)
[2019-04-13] MEDS ORDERED: VISCOUS LIDOCAINE 2% 15 ML UDC PO STA (18:32)
[2019-04-13] MEDS ORDERED: ONDANSETRON HCL 4MG/2ML INJ IV STA (18:32)
[2019-04-13] MEDS ORDERED: FAMOTIDINE 20MG/2ML VIAL IV STA (18:32)
[2019-04-13] MEDS ORDERED: MAGNESIUM/ALUMINUM HYDROXIDE/SIMETHICONE 30ML UDC PO STA (18:32)
[2019-04-13 20:08] LABS: HEMOGLOBIN. 8.6 g/dL (14.0-18.0); MEAN CORPUSCULAR HEMOGLOBIN 24.7 pg (28.0-32.0); MEAN CORPUSCULAR VOLUME 77.4 fL (80.0-94.0); MEAN PLATELET VOLUME 8.4 fl (7.4-10.4); RED BLOOD CELL COUNT 3.49 mill/uL (4.7-6.1); RED CELL DISTRIBUTION WIDTH 22.6 % (11.6-14.6)
[2019-04-13 20:11] LABS: PLATELET 42 x1000/uL (130-400)
[2019-04-13 20:12] LABS: CHLORIDE 117 mEq/L (98-107)
[2019-04-13 20:13] LABS: INR 1.2; PROTHROMBIN TIME 12.7 sec (9.6-11.0)
[2019-04-13 20:16] LABS: ETHANOL BLOOD 244 mg/dL
[2019-04-13 20:38] LABS: PLATELET ESTIMATE MARKEDLY DECREASED
[2019-04-13] MEDS ORDERED: POTASSIUM CHLORIDE 20MEQ TABLET SR PO ONE (20:45)
[2019-04-13 20:55] LABS: CREATINE KINASE 3277 IU/L (39-308)
[2019-04-14] VITALS (7 sets, daily range): BP systolic 96–119; BP diastolic 45–64
[2019-04-14] MEDS ORDERED: MAGNESIUM/ALUMINUM HYDROXIDE/SIMETHICONE 30ML UDC PO PRN (01:30)
[2019-04-14] MEDS ORDERED: MAGNESIUM 2 G PREMIX 50 ML IV SCH (02:00)
[2019-04-14] MEDS ORDERED: MVI, ADULT NO.1 10 ML, FOLIC ACID 1 MG, THIAMINE HCL 100 MG in SODIUM CHLORIDE 0.9% 1,0... IV SCH ×4 (02:00)
[2019-04-14] MEDS: SODIUM CHLORIDE 0.9% 1,000 ML IV SCH (02:46)
[2019-04-14] MEDS: FAMOTIDINE 20MG/2ML VIAL IV SCH ×2 (09:07→20:36)
[2019-04-14] MEDS ORDERED: MORPHINE SULFATE 2 MG/ML CPJ (NOT FOR IM USE) IV PRN (12:30)
[2019-04-14] MEDS ORDERED: ACETAMINOPHEN 325MG TABLET PO PRN (13:30)
[2019-04-14] MEDS ORDERED: POTASSIUM CHLORIDE 20MEQ TABLET SR PO SCH (13:30)
[2019-04-14] MEDS: ONDANSETRON HCL 4MG/2ML INJ IV PRN (14:32)
[2019-04-15] VITALS: BP 123/63
[2019-04-15] MEDS: ONDANSETRON HCL 4MG/2ML INJ IV PRN ×2 (01:44→10:47)
[2019-04-15 04:00] VITALS: BP 119/56
[2019-04-15 06:44] LABS: HEMATOCRIT. 25.3 % (42.0-52.0); HEMOGLOBIN. 8.1 g/dL (14.0-18.0); MEAN CORPUSCULAR HEMOGLOBIN 24.9 pg (28.0-32.0); MEAN CORPUSCULAR VOLUME 77.8 fL (80.0-94.0); MEAN PLATELET VOLUME 8.8 fl (7.4-10.4); RED BLOOD CELL COUNT 3.25 mill/uL (4.7-6.1); RED CELL DISTRIBUTION WIDTH 21.9 % (11.6-14.6)
[2019-04-15 08:00] VITALS: BP 126/63
[2019-04-15] MEDS: FAMOTIDINE 20MG/2ML VIAL IV SCH (08:17)
[2019-04-15] MEDS ORDERED: FOLIC ACID 1MG TABLET PO SCH (09:00)
[2019-04-15] MEDS ORDERED: THIAMINE HCL 100MG TABLET PO SCH (09:00)
[2019-04-15] MEDS ORDERED: MULTIVITAMINS,THER W-MINERALS TABLET PO SCH (09:00)
[2019-04-15 09:02] LABS: PLATELET ESTIMATE MARKEDLY DECREASED
[2019-04-15 09:03] LABS: PLATELET 33 x1000/uL (130-400)
[2019-04-15 12:00] VITALS: BP 110/50
[2019-04-15 12:31] LABS: HEPATITIS B SURFACE ANTIGEN NEGATIVE
[2019-04-15 13:01] LABS: HEPATITIS A AB IGM NEGATIVE (NEGATIVE)
[2019-04-15] MEDS: SODIUM CHLORIDE 0.9% 1,000 ML IV SCH (13:50)
[2019-04-15 16:36] VITALS: BP 98/53
== END 2019-04-15 18:05 | disposition home or self-care (01) | DRG 241 ==
LOC: ER 16:44 → 8WST 22:16 → ENRESERV 23:55
PROVIDERS: ADMIT Internal Medicine; ATTEND Internal Medicine
DX: K29.70 Gastritis, unspecified, without bleeding (principal); D61.818 Other pancytopenia; E87.0 Hyperosmolality and hypernatremia; M62.82 Rhabdomyolysis; R16.1 Splenomegaly, not elsewhere classified; D50.9 Iron deficiency anemia, unspecified; E87.6 Hypokalemia; F10.20 Alcohol dependence, uncomplicated; K70.30 Alcoholic cirrhosis of liver without ascites; Y90.8 Blood alcohol level of 240 mg/100 ml or more; Z88.8 Allergy status to other drugs, medicaments and biological substances
CPT/HCPCS: 36415; 80051; 80076; 80320; 82270; 82550; 83605; 83735; 86703; 86705; 86709; 86803; 87340; 96374; 99285; J2270; J2405; J3411; J3475; J3490; J7030; G0480

== ENCOUNTER 2019-04-16 16:31 | Emergency (ER) | payer MEDICAID ==
[~2019-04-16] VITALS: Ht 170.2 cm; Wt 78.0 kg
[2019-04-16] MEDS ORDERED: SODIUM CHLORIDE 0.9% 1,000 ML IV ONE (18:00)
[2019-04-16 18:43] LABS: HEMATOCRIT. 28.9 % (42.0-52.0); HEMOGLOBIN. 9.2 g/dL (14.0-18.0); MEAN CORPUSCULAR HEMOGLOBIN 24.7 pg (28.0-32.0); MEAN CORPUSCULAR VOLUME 77.7 fL (80.0-94.0); MEAN PLATELET VOLUME 8.5 fl (7.4-10.4); RED BLOOD CELL COUNT 3.72 mill/uL (4.7-6.1); RED CELL DISTRIBUTION WIDTH 22.5 % (11.6-14.6)
[2019-04-16 18:47] LABS: PLATELET 30 x1000/uL (130-400)
[2019-04-16 18:55] LABS: *AMPHETAMINES SCREEN URINE PRESUMTIVE POSITIVE (NEGATIVE); *BARBITURATES SCREEN URINE NEGATIVE (NEGATIVE); *BENZODIAZEPINES SCREEN URINE PRESUMTIVE POSITIVE (NEGATIVE); *COCAINE SCREEN URINE NEGATIVE (NEGATIVE); CANNABINOID URINE SCREEN NEGATIVE (NEGATIVE); METHADONE URINE SCREEN NEGATIVE (NEGATIVE); OPIATES URINE SCREEN NEGATIVE (NEGATIVE); PHENCYCLIDINE URINE SCREEN NEGATIVE (NEGATIVE)
[2019-04-16 18:56] LABS: CHLORIDE 111 mEq/L (98-107)
[2019-04-16 19:00] LABS: ETHANOL BLOOD 286 mg/dL
[2019-04-16] MEDS ORDERED: POTASSIUM CHLORIDE 20MEQ TABLET SR PO ONE (19:15)
[2019-04-16 20:22] LABS: PLATELET ESTIMATE MARKEDLY DECREASED
[2019-04-16 22:04] VITALS: BP 158/69
== END 2019-04-16 22:21 | disposition home or self-care (01) ==
LOC: ER 16:31
DX: F10.229 Alcohol dependence with intoxication, unspecified (principal); Y90.8 Blood alcohol level of 240 mg/100 ml or more; D69.6 Thrombocytopenia, unspecified; F14.10 Cocaine abuse, uncomplicated; F12.10 Cannabis abuse, uncomplicated; F15.10 Other stimulant abuse, uncomplicated; F11.10 Opioid abuse, uncomplicated; Z88.3 Allergy status to other anti-infective agents; Z88.6 Allergy status to analgesic agent; Z79.899 Other long term (current) drug therapy
CPT/HCPCS: 36415; 80053; 80305; 80320; 85025; 99283; J7030; G0480

== ENCOUNTER 2019-04-22 19:16 | Emergency (ER) | payer MEDICAID ==
[~2019-04-22] VITALS: Ht 162.6 cm; Wt 70.0 kg
[2019-04-22] MEDS ORDERED: VISCOUS LIDOCAINE 2% 15 ML UDC PO STA (22:32)
[2019-04-22] MEDS ORDERED: MAGNESIUM/ALUMINUM HYDROXIDE/SIMETHICONE 30ML UDC PO STA (22:32)
[2019-04-22] MEDS ORDERED: FAMOTIDINE 20MG TABLET PO ONE (22:45)
[2019-04-22 23:00] LABS: BASOPHILS % 0.3 % (0.0-2.0); EOSINOPHILS % 0.5 % (0.0-5.0); HEMATOCRIT. 29.2 % (42.0-52.0); HEMOGLOBIN. 9.4 g/dL (14.0-18.0); LYMPHOCYTES % 33.5 % (20.0-50.0); MEAN CORPUSCULAR HEMOGLOBIN 24.6 pg (28.0-32.0); MEAN CORPUSCULAR VOLUME 76.7 fL (80.0-94.0); MONOCYTES % 4.7 % (2.0-8.0); RED BLOOD CELL COUNT 3.82 mill/uL (4.7-6.1)
[2019-04-22 23:06] LABS: CHLORIDE 115 mEq/L (98-107); PLATELET 24 x1000/uL (130-400)
[2019-04-22 23:28] LABS: ETHANOL BLOOD 398 mg/dL
[2019-04-23] MEDS ORDERED: ONDANSETRON HCL 4MG/2ML INJ IV NR
[2019-04-23] MEDS ORDERED: FOLIC ACID 1 MG, THIAMINE HCL 100 MG, MVI, ADULT NO.1 10 ML in DEXTROSE 5% WATER 1,000 ML IV NR ×4
[2019-04-23 01:34] LABS: CLARITY URINE CLEAR (CLEAR); COLOR URINE YELLOW (YELLOW); KETONES URINE NEGATIVE (NEGATIVE); LEUKOCYTE ESTERASE URINE NEGATIVE (NEGATIVE); NITRITE URINE NEGATIVE (NEGATIVE); OCCULT BLOOD URINE NEGATIVE (NEGATIVE); PH URINE 5.5 (4.5-8.0); PROTEIN URINE NEGATIVE (NEGATIVE); SPECIFIC GRAVITY URINE 1.006 (1.005-1.030); UROBILINOGEN URINE 0.2 E.U./dL (0.2-1.0)
[2019-04-23 11:09] VITALS: BP 117/60
== END 2019-04-23 11:20 | disposition home or self-care (01) ==
LOC: ER 19:16
DX: F10.229 Alcohol dependence with intoxication, unspecified (principal); D72.819 Decreased white blood cell count, unspecified; D69.6 Thrombocytopenia, unspecified; D50.9 Iron deficiency anemia, unspecified; E87.6 Hypokalemia; K71.0 Toxic liver disease with cholestasis; Y90.9 Presence of alcohol in blood, level not specified; F15.10 Other stimulant abuse, uncomplicated; Z88.6 Allergy status to analgesic agent; Z88.8 Allergy status to other drugs, medicaments and biological substances; Z79.899 Other long term (current) drug therapy
CPT/HCPCS: 36415; 80053; 80320; 81003; 83690; 85025; 96365; 96366; 96375; 99284; J2405; J3411; J3490; J7070; G0480

== ENCOUNTER 2019-04-25 16:51 | Emergency (ER) | payer MEDICAID ==
[~2019-04-25] VITALS: Ht 157.5 cm; Wt 88.0 kg
[2019-04-25] MEDS ORDERED: SODIUM CHLORIDE 0.9% 1,000 ML IV ONE (19:59)
[2019-04-25] MEDS ORDERED: ONDANSETRON HCL 4MG/2ML INJ IV STA (19:59)
[2019-04-25 20:24] LABS: BASOPHILS % 0.4 % (0.0-2.0); EOSINOPHILS % 0.2 % (0.0-5.0); HEMATOCRIT. 29.3 % (42.0-52.0); HEMOGLOBIN. 9.3 g/dL (14.0-18.0); LYMPHOCYTES % 28.7 % (20.0-50.0); MEAN CORPUSCULAR HEMOGLOBIN 24.3 pg (28.0-32.0); MEAN CORPUSCULAR VOLUME 76.2 fL (80.0-94.0); MEAN PLATELET VOLUME 9.7 fl (7.4-10.4); MONOCYTES % 5.1 % (2.0-8.0); NEUTROPHILS % 65.6 % (40.0-76.0); RED BLOOD CELL COUNT 3.84 mill/uL (4.7-6.1)
[2019-04-25 20:26] LABS: PLATELET 26 x1000/uL (130-400)
[2019-04-25 20:28] LABS: CHLORIDE 111 mEq/L (98-107)
[2019-04-25 20:30] LABS: INR 1.2; PROTHROMBIN TIME 12.8 sec (9.6-11.0)
[2019-04-25] MEDS ORDERED: FAMOTIDINE 20MG/2ML VIAL IV STA (20:32)
[2019-04-25] MEDS ORDERED: MAGNESIUM/ALUMINUM HYDROXIDE/SIMETHICONE 30ML UDC PO STA (20:32)
[2019-04-25 20:33] LABS: CLARITY URINE CLEAR (CLEAR); COLOR URINE YELLOW (YELLOW); KETONES URINE NEGATIVE (NEGATIVE); LEUKOCYTE ESTERASE URINE NEGATIVE (NEGATIVE); NITRITE URINE NEGATIVE (NEGATIVE); OCCULT BLOOD URINE NEGATIVE (NEGATIVE); PH URINE 6.5 (4.5-8.0); PROTEIN URINE NEGATIVE (NEGATIVE); SPECIFIC GRAVITY URINE 1.005 (1.005-1.030); UROBILINOGEN URINE 0.2 E.U./dL (0.2-1.0)
[2019-04-25 21:53] VITALS: BP 127/66
== END 2019-04-25 21:55 | disposition home or self-care (01) ==
LOC: ER 16:51
DX: K29.20 Alcoholic gastritis without bleeding (principal); F10.20 Alcohol dependence, uncomplicated; F15.10 Other stimulant abuse, uncomplicated; Z88.6 Allergy status to analgesic agent; Z79.899 Other long term (current) drug therapy; Z88.8 Allergy status to other drugs, medicaments and biological substances; Y90.9 Presence of alcohol in blood, level not specified
CPT/HCPCS: 36415; 80053; 81003; 83690; 85025; 85610; 96361; 96374; 96375; 99283; J2405; J3490; J7030; Z7610

== ENCOUNTER 2019-04-25 22:06 | Emergency (ER) | payer MEDICAID ==
[~2019-04-25] VITALS: Ht 162.6 cm; Wt 70.0 kg
[2019-04-26 06:42] VITALS: BP 114/56
== END 2019-04-26 06:45 | disposition home or self-care (01) ==
LOC: ER 22:06
DX: F10.229 Alcohol dependence with intoxication, unspecified (principal); K70.30 Alcoholic cirrhosis of liver without ascites; Y90.9 Presence of alcohol in blood, level not specified
CPT/HCPCS: 99283

== ENCOUNTER 2019-04-28 13:33 | Emergency (ER) | payer MEDICAID ==
[~2019-04-28] VITALS: Ht 160 cm; Wt 60.0 kg
[2019-04-28] MEDS ORDERED: BACITRACIN ZINC OINT UDPKT TOP ONE (14:30)
[2019-04-28 16:21] VITALS: BP 128/83
== END 2019-04-28 16:45 | disposition home or self-care (01) ==
LOC: ER 13:33
DX: S00.531A Contusion of lip, initial encounter (principal); S00.31XA Abrasion of nose, initial encounter; S09.8XXA Other specified injuries of head, initial encounter; F10.10 Alcohol abuse, uncomplicated; K76.9 Liver disease, unspecified; Z88.6 Allergy status to analgesic agent; Z79.899 Other long term (current) drug therapy; W17.89XA Other fall from one level to another, initial encounter; Y93.89 Activity, other specified; Y92.89 Other specified places as the place of occurrence of the external cause; Y99.8 Other external cause status
CPT/HCPCS: 70450; 99284; Z7610

== ENCOUNTER 2019-05-04 12:14 | Emergency (ER) | payer MEDICAID ==
[~2019-05-04] VITALS: Ht 160 cm; Wt 62.0 kg
[2019-05-04 12:22] VITALS: BP 123/83
== END 2019-05-04 16:16 | disposition left against medical advice (07) ==
LOC: ER 12:14
DX: Z53.21 Procedure and treatment not carried out due to patient leaving prior to being seen by health care provider (principal)
CPT/HCPCS: 99283

== ENCOUNTER 2019-05-30 11:45 | Inpatient (IN) | payer MEDICAID ==
[~2019-05-30] VITALS: Ht 162.6 cm; Wt 75.3 kg
[2019-05-30] MEDS ORDERED: SODIUM CHLORIDE 0.9% 1,000 ML IV ONE ×2 (12:31→14:36)
[2019-05-30 13:18] LABS: CHLORIDE 116 mEq/L (98-107)
[2019-05-30 13:22] LABS: INR 1.3; PROTHROMBIN TIME 13.3 sec (9.6-11.0)
[2019-05-30 13:26] LABS: MEAN CORPUSCULAR HEMOGLOBIN 26.1 pg (28.0-32.0); MEAN CORPUSCULAR VOLUME 82.3 fL (80.0-94.0); MEAN PLATELET VOLUME 8.9 fl (7.4-10.4); RED BLOOD CELL COUNT 2.32 mill/uL (4.7-6.1); RED CELL DISTRIBUTION WIDTH 26.4 % (11.6-14.6)
[2019-05-30 13:38] LABS: HEMATOCRIT. 19.1 % (42.0-52.0); PLATELET 21 x1000/uL (130-400)
[2019-05-30 13:44] LABS: ETHANOL BLOOD 434 mg/dL
[2019-05-30 14:10] LABS: CLARITY URINE CLEAR (CLEAR); COLOR URINE YELLOW (YELLOW); KETONES URINE NEGATIVE (NEGATIVE); LEUKOCYTE ESTERASE URINE NEGATIVE (NEGATIVE); NITRITE URINE NEGATIVE (NEGATIVE); OCCULT BLOOD URINE NEGATIVE (NEGATIVE); PH URINE 5.5 (4.5-8.0); PROTEIN URINE NEGATIVE (NEGATIVE); SPECIFIC GRAVITY URINE 1.008 (1.005-1.030); UROBILINOGEN URINE 0.2 E.U./dL (0.2-1.0)
[2019-05-30 14:24] LABS: *BARBITURATES SCREEN URINE NEGATIVE (NEGATIVE); *BENZODIAZEPINES SCREEN URINE PRESUMTIVE POSITIVE (NEGATIVE); *COCAINE SCREEN URINE NEGATIVE (NEGATIVE); METHADONE URINE SCREEN NEGATIVE (NEGATIVE); OPIATES URINE SCREEN NEGATIVE (NEGATIVE); PHENCYCLIDINE URINE SCREEN NEGATIVE (NEGATIVE)
[2019-05-30 14:25] LABS: CANNABINOID URINE SCREEN NEGATIVE (NEGATIVE)
[2019-05-30 14:26] LABS: *AMPHETAMINES SCREEN URINE NEGATIVE (NEGATIVE)
[2019-05-30 16:30] LABS: PLATELET ESTIMATE MARKEDLY DECREASED
[2019-05-30 17:52] LABS: INR 1.4; PARTIAL THROMBOPLASTIN TIME 35.9 sec (23.4-31.0)
[2019-05-30 19:19] LABS: HEMATOCRIT. 28.3 % (42.0-52.0); MEAN CORPUSCULAR HEMOGLOBIN 26.2 pg (28.0-32.0); MEAN PLATELET VOLUME 8.3 fl (7.4-10.4); RED BLOOD CELL COUNT 3.45 mill/uL (4.7-6.1); RED CELL DISTRIBUTION WIDTH 24.9 % (11.6-14.6)
[2019-05-30 19:25] LABS: PLATELET 20 x1000/uL (130-400)
[2019-05-30 19:46] LABS: PLATELET ESTIMATE MARKEDLY DECREASED
[2019-05-30] MEDS ORDERED: SODIUM CHLORIDE 0.45% 500 ML IV ONE (22:00)
[2019-05-30 22:01] VITALS: BP 161/61
[2019-05-31] VITALS: BP 109/56
[2019-05-31 04:00] VITALS: BP 116/61
[2019-05-31 06:46] LABS: HEMATOCRIT. 26.6 % (42.0-52.0); HEMOGLOBIN. 8.6 g/dL (14.0-18.0); MEAN CORPUSCULAR HEMOGLOBIN 26.2 pg (28.0-32.0); MEAN CORPUSCULAR VOLUME 81.3 fL (80.0-94.0); MEAN PLATELET VOLUME 8.4 fl (7.4-10.4); RED BLOOD CELL COUNT 3.27 mill/uL (4.7-6.1); RED CELL DISTRIBUTION WIDTH 24.7 % (11.6-14.6)
[2019-05-31 06:57] LABS: CHLORIDE 114 mEq/L (98-107)
[2019-05-31 06:58] LABS: PLATELET 17 x1000/uL (130-400)
[2019-05-31 07:04] LABS: PHOSPHORUS 3.1 mg/dL (2.5-4.9)
[2019-05-31 08:00] VITALS: BP 119/62
[2019-05-31] MEDS: PANTOPRAZOLE SODIUM 40 MG/VIAL IV SCH ×2 (09:32→17:25)
[2019-05-31] MEDS: FOLIC ACID 1MG TABLET PO SCH (09:32)
[2019-05-31] MEDS: FERROUS SULFATE 325MG TABLET PO SCH (09:32)
[2019-05-31] MEDS: MULTIVITAMINS,THER W-MINERALS TABLET PO SCH (09:32)
[2019-05-31] MEDS: THIAMINE HCL 100MG TABLET PO SCH (09:33)
[2019-05-31 11:31] VITALS: BP 125/65
[2019-05-31] MEDS: SUCRALFATE 1 G/10 ML UDC PO SCH ×3 (12:37→21:24)
[2019-05-31 16:00] VITALS: BP 139/65
[2019-05-31] MEDS: CHLORDIAZEPOXIDE 25MG CAPSULE PO SCH ×2 (16:00→21:24)
[2019-05-31 20:00] VITALS: BP 110/51
[2019-05-31 20:30] LABS: HEMATOCRIT 27.5 % (42.0-52.0)
[2019-05-31 20:39] LABS: INR 1.3; PARTIAL THROMBOPLASTIN TIME 34.2 sec (23.4-31.0); PROTHROMBIN TIME 13.5 sec (9.6-11.0)
[2019-05-31 20:49] LABS: PLATELET ESTIMATE MARKEDLY DECREASED
[2019-05-31 21:06] LABS: FOLIC ACID (FOLATE) SERUM 17.5 ng/mL (>5.38)
[2019-06-01] VITALS: BP 115/55
[2019-06-01 01:57] LABS: HEMATOCRIT 28.3 % (42.0-52.0); HEMOGLOBIN 9.4 g/dL (14.0-18.0)
[2019-06-01 04:00] VITALS: BP 116/59
[2019-06-01] MEDS: CHLORDIAZEPOXIDE 25MG CAPSULE PO SCH ×3 (05:49→21:11)
[2019-06-01] MEDS: SUCRALFATE 1 G/10 ML UDC PO SCH ×4 (06:20→21:09)
[2019-06-01 06:43] LABS: CHLORIDE 106 mEq/L (98-107)
[2019-06-01 08:00] VITALS: BP 128/78
[2019-06-01] MEDS: PANTOPRAZOLE SODIUM 40 MG/VIAL IV SCH (08:16)
[2019-06-01] MEDS: MULTIVITAMINS,THER W-MINERALS TABLET PO SCH (08:16)
[2019-06-01] MEDS: FERROUS SULFATE 325MG TABLET PO SCH (08:16)
[2019-06-01] MEDS: FOLIC ACID 1MG TABLET PO SCH (08:16)
[2019-06-01] MEDS: THIAMINE HCL 100MG TABLET PO SCH (08:16)
[2019-06-01 08:28] LABS: HEMATOCRIT. 29.8 % (42.0-52.0); HEMOGLOBIN. 9.7 g/dL (14.0-18.0); MEAN CORPUSCULAR HEMOGLOBIN 26.3 pg (28.0-32.0); MEAN PLATELET VOLUME 9.4 fl (7.4-10.4); RED BLOOD CELL COUNT 3.68 mill/uL (4.7-6.1); RED CELL DISTRIBUTION WIDTH 24.1 % (11.6-14.6)
[2019-06-01 08:38] LABS: PLATELET 23 x1000/uL (130-400)
[2019-06-01 10:00] LABS: PLATELET ESTIMATE MARKEDLY DECREASED
[2019-06-01] MEDS ORDERED: POTASSIUM CHLORIDE 20MEQ TABLET SR PO NR (11:30)
[2019-06-01 11:51] VITALS: BP 119/75
[2019-06-01] MEDS: LACTULOSE 20G/30ML UDC PO SCH ×2 (13:14→21:09)
[2019-06-01 16:30] VITALS: BP 105/62
[2019-06-01 20:00] VITALS: BP 122/76
[2019-06-01] MEDS: PROPRANOLOL HCL 10MG TABLET PO SCH (21:08)
[2019-06-01] MEDS: OMEPRAZOLE 20MG CAPSULE EXTENDED RELEASE PO SCH (21:09)
[2019-06-01] MEDS: RIFAXIMIN 550 MG TABLET PO SCH (21:09)
[2019-06-02] VITALS: BP 115/68
[2019-06-02 04:00] VITALS: BP 103/56
[2019-06-02] MEDS: CHLORDIAZEPOXIDE 25MG CAPSULE PO SCH (05:45)
[2019-06-02] MEDS: LACTULOSE 20G/30ML UDC PO SCH (05:45)
[2019-06-02] MEDS: SUCRALFATE 1 G/10 ML UDC PO SCH (05:45)
[2019-06-02] MEDS: OMEPRAZOLE 20MG CAPSULE EXTENDED RELEASE PO SCH (05:45)
[2019-06-02 06:20] LABS: HEMATOCRIT. 29.5 % (42.0-52.0); HEMOGLOBIN. 9.7 g/dL (14.0-18.0); MEAN CORPUSCULAR HEMOGLOBIN 26.6 pg (28.0-32.0); MEAN CORPUSCULAR VOLUME 80.8 fL (80.0-94.0); MEAN PLATELET VOLUME 10.3 fl (7.4-10.4); RED BLOOD CELL COUNT 3.65 mill/uL (4.7-6.1); RED CELL DISTRIBUTION WIDTH 24.5 % (11.6-14.6)
[2019-06-02 06:35] LABS: CHLORIDE 109 mEq/L (98-107)
[2019-06-02 06:47] LABS: PHOSPHORUS 3.4 mg/dL (2.5-4.9)
[2019-06-02 08:00] VITALS: BP 104/55
[2019-06-02 08:14] LABS: PLATELET ESTIMATE MARKEDLY DECREASED
[2019-06-02 08:15] LABS: PLATELET 25 x1000/uL (130-400)
[2019-06-02] MEDS: PROPRANOLOL HCL 10MG TABLET PO SCH (08:26)
[2019-06-02] MEDS: FOLIC ACID 1MG TABLET PO SCH (08:44)
[2019-06-02] MEDS: MULTIVITAMINS,THER W-MINERALS TABLET PO SCH (08:44)
[2019-06-02] MEDS: THIAMINE HCL 100MG TABLET PO SCH (08:44)
[2019-06-02] MEDS: RIFAXIMIN 550 MG TABLET PO SCH (08:44)
[2019-06-02] MEDS: FERROUS SULFATE 325MG TABLET PO SCH (08:55)
[2019-06-02 09:33] VITALS: BP 104/55
[2019-06-07 04:15] LABS: OVA & PARASITE EXAM Final report (.)
== END 2019-06-02 10:09 | disposition home or self-care (01) | DRG 775 ==
LOC: ER 11:59 → 8WST 14:47 → ENRESERV 20:25
PROVIDERS: ADMIT Family Medicine Adult Medicine; ATTEND Family Medicine Adult Medicine
DX: F10.229 Alcohol dependence with intoxication, unspecified (principal); E43 Unspecified severe protein-calorie malnutrition; D61.818 Other pancytopenia; E87.0 Hyperosmolality and hypernatremia; K76.6 Portal hypertension; E86.0 Dehydration; K29.20 Alcoholic gastritis without bleeding; R16.1 Splenomegaly, not elsewhere classified; K70.30 Alcoholic cirrhosis of liver without ascites; K70.40 Alcoholic hepatic failure without coma; Z88.8 Allergy status to other drugs, medicaments and biological substances; Z88.1 Allergy status to other antibiotic agents; Z59.0 Homelessness; Z71.41 Alcohol abuse counseling and surveillance of alcoholic; Z68.28 Body mass index [BMI] 28.0-28.9, adult
CPT/HCPCS: 36415; 71045; 74018; 76700; 80048; 80076; 80305; 80320; 82140; 82270; 82607; 82705; 82728; 82746; 83540; 83550; 83735; 84100; 85014; 85018; 86850; 86900; 86920; 87015; 87045; 87177; 87209; 87427; 87449; 89055; 99285; C9113; J7030; P9016; G0480

== ENCOUNTER 2019-06-03 16:16 | Emergency (ER) | payer MEDICAID ==
[~2019-06-03] VITALS: Ht 167.6 cm; Wt 66.0 kg
[2019-06-03 17:02] LABS: BASOPHILS % 0.7 % (0.0-2.0); EOSINOPHILS % 1.2 % (0.0-5.0); HEMATOCRIT. 29.4 % (42.0-52.0); HEMOGLOBIN. 9.5 g/dL (14.0-18.0); MEAN CORPUSCULAR HEMOGLOBIN 26.4 pg (28.0-32.0); MEAN CORPUSCULAR VOLUME 81.7 fL (80.0-94.0); MEAN PLATELET VOLUME 8.3 fl (7.4-10.4); MONOCYTES % 12.3 % (2.0-8.0); NEUTROPHILS % 56.8 % (40.0-76.0); RED CELL DISTRIBUTION WIDTH 25.7 % (11.6-14.6)
[2019-06-03 17:03] LABS: CHLORIDE 112 mEq/L (98-107)
[2019-06-03 17:10] LABS: PLATELET 33 x1000/uL (130-400)
[2019-06-03 17:20] LABS: ETHANOL BLOOD 305 mg/dL
[2019-06-03 18:49] LABS: *AMPHETAMINES SCREEN URINE NEGATIVE (NEGATIVE); *BARBITURATES SCREEN URINE NEGATIVE (NEGATIVE); *BENZODIAZEPINES SCREEN URINE PRESUMTIVE POSITIVE (NEGATIVE); *COCAINE SCREEN URINE NEGATIVE (NEGATIVE)
[2019-06-03 18:50] LABS: CANNABINOID URINE SCREEN NEGATIVE (NEGATIVE); METHADONE URINE SCREEN NEGATIVE (NEGATIVE); OPIATES URINE SCREEN NEGATIVE (NEGATIVE); PHENCYCLIDINE URINE SCREEN NEGATIVE (NEGATIVE)
[2019-06-03] MEDS ORDERED: SODIUM CHLORIDE 0.9% 1,000 ML IV ONE (21:15)
[2019-06-03 22:00] VITALS: BP 95/54
== END 2019-06-04 00:50 | disposition home or self-care (01) ==
LOC: ER 16:16
DX: T51.0X1A Toxic effect of ethanol, accidental (unintentional), initial encounter (principal); Y92.89 Other specified places as the place of occurrence of the external cause; D69.6 Thrombocytopenia, unspecified; Z88.6 Allergy status to analgesic agent; Z88.3 Allergy status to other anti-infective agents; Z79.899 Other long term (current) drug therapy
CPT/HCPCS: 36415; 80053; 80305; 80320; 85025; 99283; J7030; Z7610; G0480

== ENCOUNTER 2019-06-04 16:57 | Emergency (ER) | payer MEDICAID ==
[~2019-06-04] VITALS: Ht 167.6 cm; Wt 68.0 kg
[2019-06-04 17:38] LABS: BASOPHILS % 0.7 % (0.0-2.0); EOSINOPHILS % 0.8 % (0.0-5.0); HEMOGLOBIN. 9.1 g/dL (14.0-18.0); LYMPHOCYTES % 30.9 % (20.0-50.0); MEAN CORPUSCULAR HEMOGLOBIN 26.3 pg (28.0-32.0); MEAN CORPUSCULAR VOLUME 81.1 fL (80.0-94.0); MEAN PLATELET VOLUME 8.8 fl (7.4-10.4); MONOCYTES % 12.2 % (2.0-8.0); NEUTROPHILS % 55.4 % (40.0-76.0); RED BLOOD CELL COUNT 3.45 mill/uL (4.7-6.1); RED CELL DISTRIBUTION WIDTH 25.6 % (11.6-14.6)
[2019-06-04 17:41] LABS: CHLORIDE 119 mEq/L (98-107)
[2019-06-04 17:44] LABS: PLATELET 32 x1000/uL (130-400)
[2019-06-04] MEDS ORDERED: SODIUM CHLORIDE 0.9% 1,000 ML IV ONE (17:52)
[2019-06-04 17:56] LABS: ETHANOL BLOOD 364 mg/dL
[2019-06-04 18:42] LABS: *AMPHETAMINES SCREEN URINE NEGATIVE (NEGATIVE); *BARBITURATES SCREEN URINE NEGATIVE (NEGATIVE); *BENZODIAZEPINES SCREEN URINE PRESUMTIVE POSITIVE (NEGATIVE); *COCAINE SCREEN URINE NEGATIVE (NEGATIVE); METHADONE URINE SCREEN NEGATIVE (NEGATIVE); OPIATES URINE SCREEN NEGATIVE (NEGATIVE)
[2019-06-04 18:43] LABS: CANNABINOID URINE SCREEN NEGATIVE (NEGATIVE); PHENCYCLIDINE URINE SCREEN NEGATIVE (NEGATIVE)
[2019-06-04 23:04] VITALS: BP 98/62
== END 2019-06-04 23:04 | disposition home or self-care (01) ==
LOC: ER 16:57
DX: T51.0X1A Toxic effect of ethanol, accidental (unintentional), initial encounter (principal); Y92.89 Other specified places as the place of occurrence of the external cause; Z88.6 Allergy status to analgesic agent; Z88.3 Allergy status to other anti-infective agents; Z79.899 Other long term (current) drug therapy; Y90.8 Blood alcohol level of 240 mg/100 ml or more
CPT/HCPCS: 36415; 80053; 80305; 80320; 85025; 99283; J7030; G0480